=== PATIENT | female | born 1970 | race Caucasian/White ===

== ENCOUNTER 2017-01-02 09:40 | Emergency (ER) | payer BC ==
[~2017-01-02] VITALS: Ht 160 cm; Wt 111.1 kg
[~2017-01-02 09:40] MED LIST: IBUPROFEN600 MG ORAL; KEFLEX500 MG ORAL; KENALOG 0.1% CR15 GM APPLIC; MEDROL DOSEPAK4 MG ORAL
[2017-01-02 09:55] VITALS: BP 109/73
--- NOTE | 2017-01-02 10:56 | Emergency Room Report ---
History of Present Illness General Chief Complaint: Palpitations Source: Patient, Medical Record Present Illness HPI 46-year-old female history of diabetes and asthma presenting with 3 days of fever or chills and slight cough. Patient states that she has had slight dry cough, slight shortness of breath however has not needed to use her inhaler, also with subjective fevers. Patient is a she woke up this morning sweating. Also states she had one episode of watery nonbloody diarrhea yesterday. Also complains of slight dysuria no hematuria Denies any chest pain abdominal pain vomiting. No recent hospitalizations no sick contacts no recent travel Has never been hospitalized for her asthma Allergies: Coded Allergies: PENICILLINS (Unverified Allergy, Severe, Hives, 07/23/15) Patient History Past Medical History: see triage record Past Surgical History: none Pertinent Family History: none Last Menstrual Period: 11/12/16 Reviewed Nursing Documentation: PMH: Agreed, PSxH: Agreed Nursing Documentation-PMH Past Medical History: No History, Except For Hx Asthma: Yes Review of Systems All Other Systems: negative except mentioned in HPI Physical Exam Vital Signs Date Time Temp Pulse Resp B/P (MAP) Pulse Ox O2 Delivery O2 Flow Rate FiO2 01/02/17 09:45 98.1 86 19 128/89 96 Room Air Sp02 EP Interpretation: reviewed, normal General Appearance: normal inspection, well appearing, no apparent distress, alert, GCS 15, non-toxic Head: normocephalic, atraumatic Eyes: bilateral eye normal inspection, bilateral eye PERRL, bilateral eye EOMI ENT: normal ENT inspection, normal pharynx, normal voice, moist mucus membranes Neck: normal inspection, full range of motion, supple Respiratory: normal inspection, lungs clear, normal breath sounds, no respiratory distress, no retraction, no wheezing, speaking full sentences, chest symmetrical Cardiovascular #1: normal inspection, regular rate, rhythm, no edema, normal capillary refill Cardiovascular #2: 2+ radial (R), 2+ radial (L) Gastrointestinal: normal inspection, non tender, soft, non-distended, no guarding Musculoskeletal: normal inspection, back normal, normal range of motion, non- tender Neurologic: normal inspection, alert, oriented x3, responsive, motor strength/ tone normal, sensory intact, normal gait, speech normal Psychiatric: normal inspection, judgement/insight normal, memory normal Skin: normal inspection, normal color, no rash, warm/dry, well hydrated, normal turgor Medical Decision Making Diagnostic Impression: Primary Impression: Viral upper respiratory illness ER Course 38-year-old female with fever chills cough dysuria DDX: Viral syndrome, viral URI, pneumonia, UTI, gastroenteritis Plan: Obtain labs, ua, CXR ER course: Patient has remained stable during ED stay. VSS ate sandwich in ED, NAD labs and cxr unremarkable Disposition: Patient is to be discharged to home. Patient is instructed to follow up with their primary care doctor within 5 days. Strict return precautions discussed with patient such as fever, chills, worsening/severe pain, nausea, vomiting, which may indicate severe illness. Patient verbalizes understanding and agrees with plan. Please note that this Emergency Department Report was dictated using Happy Elementsanswering service operator technology software, occasionally this can lead to erroneous entry secondary to interpretation by the dictation equipment Rhythm Strip EP Interpretation: Yes Rate: 70 Rhythm: NSR, no PVCs, no ectopy Chest X-ray CXR: Ordered: Yes 1 view Indication: Chest pain EP interpretation: Yes Interpretation: No consolidation, no effusion, no PTX, no acute cardiopulmonary disease Impression: No acute disease Electronically signed by Bairon Frost MD Laboratory Tests Test 01/02/17 11:20 01/02/17 12:00 White Blood Count 7.4 K/UL (4.8-10.8) Red Blood Count 4.12 M/UL (4.20-5.40) L Hemoglobin 13.1 G/DL (12.0-16.0) Hematocrit 38.7 % (37.0-47.0) Mean Corpuscular Volume 94 FL (80-99) Mean Corpuscular Hemoglobin 31.8 PG (27.0-31.0) H Mean Corpuscular Hemoglobin Concent 33.9 G/DL (32.0-36.0) Red Cell Distribution Width 11.0 % (11.6-14.8) L Platelet Count 263 K/UL (150-450) Mean Platelet Volume 6.7 FL (6.5-10.1) Neutrophils (%) (Auto) 51.3 % (45.0-75.0) Lymphocytes (%) (Auto) 34.3 % (20.0-45.0) Monocytes (%) (Auto) 7.9 % (1.0-10.0) Eosinophils (%) (Auto) 5.6 % (0.0-3.0) H Basophils (%) (Auto) 0.9 % (0.0-2.0) Sodium Level 139 MMOL/L (136-145) Potassium Level 3.9 MMOL/L (3.5-5.1) Chloride Level 104 MMOL/L (98-107) Carbon Dioxide Level 29 MMOL/L (21-32) Anion Gap 6 mmol/L (5-15) Blood Urea Nitrogen 9 mg/dL (7-18) Creatinine 0.7 MG/DL (0.55-1.30) Estimate Glomerular Filtration Rate > 60 mL/min (>60) Glucose Level 254 MG/DL (74-106) H Calcium Level 9.2 MG/DL (8.5-10.1) Total Bilirubin 0.3 MG/DL (0.2-1.0) Aspartate Amino Transferase (AST) 22 U/L (15-37) Alanine Aminotransferase (ALT) 35 U/L (12-78) Alkaline Phosphatase 90 U/L (46-116) Total Protein 7.7 G/DL (6.4-8.2) Albumin 3.0 G/DL (3.4-5.0) L Globulin 4.7 g/dL Albumin/Globulin Ratio 0.6 (1.0-2.7) L Urine Color Pending Urine Appearance Pending Urine pH Pending Urine Specific Cooper Pending Urine Protein Pending Urine Glucose (UA) Pending Urine Ketones Pending Urine Occult Blood Pending Urine Nitrite Pending Urine Bilirubin Pending Urine Urobilinogen Pending Urine Leukocyte Esterase Pending Urine HCG, Qualitative Pending Last Vital Signs Date Time Temp Pulse Resp B/P (MAP) Pulse Ox O2 Delivery O2 Flow Rate FiO2 01/02/17 09:45 98.1 86 19 128/89 96 Room Air Disposition: HOME, SELF-CARE Condition: Improved Referrals: NOT CHOSEN KATE/,REFERRING (PCP) Bairon Frost M.D. Jan 02, 2017 10:56
[2017-01-02 11:34] LABS: BASOPHILS % (AUTO) 0.9 % (0.0-2.0); EOSINOPHILS % (AUTO) 5.6 % (0.0-3.0); LYMPHOCYTES % (AUTO) 34.3 % (20.0-45.0); MEAN CORPUSCULAR HEMOGLOBIN 31.8 PG (27.0-31.0); MEAN CORPUSCULAR HGB CONC 33.9 G/DL (32.0-36.0); MEAN CORPUSCULAR VOLUME 94 FL (80-99); MEAN PLATELET VOLUME 6.7 FL (6.5-10.1); MONOCYTES % (AUTO) 7.9 % (1.0-10.0); NEUTROPHILS % (AUTO) 51.3 % (45.0-75.0); PLATELET COUNT 263 K/UL (150-450); RED BLOOD COUNT 4.12 M/UL (4.20-5.40); WHITE BLOOD COUNT 7.4 K/UL (4.8-10.8)
[2017-01-02 11:48] LABS: ALANINE AMINOTRANSFERASE 35 U/L (12-78); ALBUMIN/GLOBULIN RATIO 0.6 (1.0-2.7); ANION GAP 6 mmol/L (5-15); ASPARTATE AMINO TRANSFERASE 22 U/L (15-37); CALCIUM 9.2 MG/DL (8.5-10.1); CARBON DIOXIDE 29 MMOL/L (21-32); CHLORIDE 104 MMOL/L (98-107); CREATININE 0.7 MG/DL (0.55-1.30); GLOMERULAR FILTRATION RATE > 60 mL/min (>60); POTASSIUM 3.9 MMOL/L (3.5-5.1); SODIUM 139 MMOL/L (136-145); TOTAL PROTEIN 7.7 G/DL (6.4-8.2)
[2017-01-02 12:55] VITALS: BP 104/54
[2017-01-02 13:20] LABS: APPEARANCE,URINE SLIGHTLY CLOUDY; KETONES,URINE 2+ (NEGATIVE); LEUKOCYTE ESTERASE ,URINE 2+ (NEGATIVE); NITRITE,URINE POSITIVE (NEGATIVE); PH,URINE 5 (4.5-8.0); PROTEIN,URINE 3+ (NEGATIVE); UROBILINOGEN,URINE 4 MG/DL (0.0-1.0)
[2017-01-02 13:34] LABS: BACTERIA,URINE FEW /HPF; ICTOTEST NEGATIVE; SQUAMOUS EPITHELIAL CELL,UR MODERATE /LPF (NONE/OCC)
[2017-01-02] MEDS ORDERED: KEFLEX500 MG ORAL (13:38)
[2017-01-02 13:50] VITALS: BP 120/66
--- NOTE | 2017-01-02 17:38 | Diagnostic Imaging Report ---
Indication: PAIN Technique: One view of the chest Comparison: none Findings: Lungs and pleural spaces are clear. Heart size is normal. Impression: No acute process
== END 2017-01-02 13:50 | disposition home or self-care (01) ==
LOC: EMR 10:18
DX: J06.9 Acute upper respiratory infection, unspecified (principal); E11.9 Type 2 diabetes mellitus without complications; J45.909 Unspecified asthma, uncomplicated; R05 Cough; R06.02 Shortness of breath; Z88.0 Allergy status to penicillin
CPT/HCPCS: 36415; 71010; 80053; 81003; 81025; 85025; 96374; 96375; 99284; J2405

== ENCOUNTER 2018-11-09 09:43 | Emergency (ER) | payer SELFPAY ==
[~2018-11-09] VITALS: Ht 160 cm; Wt 113.4 kg
[2018-11-09] MEDS ORDERED: NKM (09:49)
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
[2018-11-09 10:04] VITALS: BP 160/92
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
[2018-11-09] MEDS ORDERED: ACETAMINOPHEN325 M1 ORAL (11:35)
[2018-11-09] MEDS ORDERED: ROBAXIN-750750 MG PO (11:35)
[2018-11-09] MEDS ORDERED: DEBROX15 M1 BOTH EARS (11:35)
[2018-11-09] MEDS ORDERED: IBUPROFEN600 MG ORAL (11:38)
[2018-11-09 11:43] VITALS: BP 142/71
--- NOTE | 2018-11-09 11:44 | NUR ---
ER DISCHARGE NOTE: Patient is cleared to be discharged per ERMD, pt is aox4, on room air, with stable vital signs. pt was given dc and prescription instructions, pt was able to verbalize understanding, pt id band removed without complications. pt is able to ambulate with steady gait. pt took all belongings.
--- NOTE | 2018-11-09 12:09 | Diagnostic Imaging Report ---
Indication: Reason For Exam: PAIN Technique: 3 views of the cervical spine Comparison: none Findings: There is slight reversal of the normal cervical lordosis. Otherwise normal bony alignment. No prevertebral soft tissue swelling. There is degenerative disc narrowing at C5-6 and C6-7. The remaining disc spaces are preserved. The vertebral body heights are preserved. There are small bilateral cervical ribs. Impression: Degenerative changes, as described No acute bony trauma
--- NOTE | 2018-11-09 12:10 | Diagnostic Imaging Report ---
Indication: Chest pain Technique: 2 views of the chest Comparison: 01/02/2017 Findings: Lungs and pleural spaces are clear. The heart size is normal. The bones are unremarkable. No significant interim change. Impression: Negative
--- NOTE | 2018-11-09 12:10 | Diagnostic Imaging Report ---
Indications: Thoracic spine pain Technique: Two views of the thoracic spine Comparison: None Findings: Bony alignment is normal. There are degenerative osteophytes at multiple levels. Vertebral body heights are preserved. No acute fractures. No dislocations. Bony alignment is normal. Pedicles are intact. No gross paraspinous mass. Impression: Degenerative changes, as described. No acute bony trauma
== END 2018-11-09 11:44 | disposition home or self-care (01) ==
LOC: EMR 10:15
DX: R07.89 Other chest pain (principal); S16.1XXA Strain of muscle, fascia and tendon at neck level, initial encounter; M62.838 Other muscle spasm; M54.6 Pain in thoracic spine; H61.21 Impacted cerumen, right ear; J45.909 Unspecified asthma, uncomplicated; V43.52XA Car driver injured in collision with other type car in traffic accident, initial encounter; Y92.410 Unspecified street and highway as the place of occurrence of the external cause
CPT/HCPCS: 71046; 72040; 72070; 99284

== ENCOUNTER 2019-08-22 15:28 | Emergency (ER) | payer MEDICAID, OTHER ==
[~2019-08-22] VITALS: Ht 160 cm; Wt 99.8 kg
[~2019-08-22 15:28] MED LIST changes: +ACETAMINOPHEN325 M1 ORAL; +ALBUTEROL SULF8.5 GM INH; +DEBROX15 M1 BOTH EARS; +METFORMIN HCL500 M1 ORAL; +NKM; +ROBAXIN-750750 MG PO
[2019-08-22 16:06] VITALS: BP 132/82
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
[2019-08-22] MEDS ORDERED: LIDODERM700 M1 TOPIC (17:37)
[2019-08-22 17:47] VITALS: BP 133/81
== END 2019-08-22 17:48 | disposition home or self-care (01) ==
LOC: EMR 17:28
DX: S00.93XA Contusion of unspecified part of head, initial encounter (principal); S20.219A Contusion of unspecified front wall of thorax, initial encounter; Y04.2XXA Assault by strike against or bumped into by another person, initial encounter; Y92.9 Unspecified place or not applicable; Z88.0 Allergy status to penicillin; Z91.018 Allergy to other foods
CPT/HCPCS: 70450; 71250; Z7502; 99284